=== PATIENT | female | born 1980 | race Caucasian/White ===

== ENCOUNTER 2016-08-02 18:39 | Emergency (ER) | payer OTHER ==
[2016-08-02 19:00] VITALS: BP 91/62
== END 2016-08-02 20:13 | disposition home or self-care (01) ==
LOC: ED 18:39
DX: J01.90 Acute sinusitis, unspecified (principal); J20.9 Acute bronchitis, unspecified

== ENCOUNTER 2017-04-10 12:39 | Emergency (ER) | payer OTHER ==
[~2017-04-10] VITALS: Ht 160 cm; Wt 73.6 kg
[2017-04-10 12:58] VITALS: Ht 160 cm; Wt 73.6 kg
[2017-04-10 13:43] LABS: CALCIUM 8.5 mg/dL (8.5-10.1); CARBON DIOXIDE 27.3 mmol/L (21-32); CHLORIDE SERUM 103 mmol/L (98-107); CREATININE SERUM 0.6 mg/dL (0.6-1.0); GFR1 > 60 mL/min; GLUCOSE SERUM 92 mg/dL (74-106); POTASSIUM SERUM 3.6 mmol/L (3.5-5.1); SODIUM SERUM 140 mmol/L (136-145)
[2017-04-10 14:10] VITALS: BP 132/72
== END 2017-04-10 14:10 | disposition home or self-care (01) ==
LOC: ED 12:39
PROVIDERS: Emergency Medicine
DX: G43.909 Migraine, unspecified, not intractable, without status migrainosus (principal); R03.0 Elevated blood-pressure reading, without diagnosis of hypertension
CPT/HCPCS: J0780; J1885

== ENCOUNTER 2019-07-24 17:39 | Emergency (ER) | payer OTHER ==
[~2019-07-24] VITALS: Ht 160 cm; Wt 77.6 kg
[2019-07-24 17:44] VITALS: Ht 160 cm; Wt 77.6 kg
[2019-07-24 18:37] VITALS: BP 128/83
== END 2019-07-24 18:37 | disposition home or self-care (01) ==
LOC: ED 17:39
DX: G51.0 Bell's palsy (principal); S16.1XXA Strain of muscle, fascia and tendon at neck level, initial encounter; G43.909 Migraine, unspecified, not intractable, without status migrainosus; X58.XXXA Exposure to other specified factors, initial encounter; Y93.89 Activity, other specified; Y92.89 Other specified places as the place of occurrence of the external cause; Y99.8 Other external cause status
CPT/HCPCS: J1885